=== PATIENT | male | born 1970 | race Caucasian/White ===

== ENCOUNTER 2018-01-04 06:59 | Emergency (ER) | payer SELFPAY ==
[2018-01-04 07:03] VITALS: BP 166/109; PULSE 108; RESP 18; TEMP 36.7; O2SAT 100; BMI 20.2
--- NOTE | 2018-01-04 07:13 | EKG12_ITS ---
Test Reason : REPEAT-CP Blood Pressure : / mmHG Vent. Rate : 083 BPM Atrial Rate : 083 BPM P-R Int : 148 ms QRS Dur : 096 ms QT Int : 380 ms P-R-T Axes : 073 080 054 degrees QTc Int : 446 ms Normal sinus rhythm with sinus arrhythmia Normal ECG Confirmed by RACHEL DELUCA, ESTRELLA ([id number]), magazine editor SUDHIR RODRIGUEZ ([id number]) on 01/06/2018 11:21:36 AM Referred By: CORRINA Confirmed By:ESTRELLA RAMOS MD
--- NOTE | 2018-01-04 07:13 | RAD_ITS ---
STUDY: X-RAY CHEST REASON FOR EXAM: Male, 47 years old. Chest pain. TECHNIQUE: Single AP portable view of the chest. Patient is mildly rotated. # of Images: 1 COMPARISON: None. FINDINGS: There is hyperinflation of the lungs. There is no demonstrated pleural abnormality. Normal size heart. Normal mediastinum and mesha. Normal visualized pulmonary arteries. Normal visualized aortic arch and descending thoracic aorta. Normal visualized thoracic spine. Normal visualized ribs, clavicles, and shoulders. There is no demonstrated abnormality of the visualized soft tissue structures of the upper abdomen. RAD/Chest 1 View (Portable) IMPRESSION: No acute or active cardiopulmonary abnormality noted. Electronically Signed: Montrell Prado MD at 7:37 EDT Tel , Service support ,
--- NOTE | 2018-01-04 07:14 | ED.VISSUMM ---
- ER Visit Summary Date of Service: 01/04/18 Chief Complaint: Chest pain History of Present Illness: The patient is a 47 M with no primary care physician. He reports his chest pain began 30 minutes ago while walking to work. Reports that this was light activity. He describes as a pressure and squeezing left upper chest with radiation to his shoulder. Is 5 out of 10 at worst and 3-10 currently. Is worsened by exertion or breathing. Is relieved by rest. He reports this made him short of breath and lightheaded. Denies any associated nausea, vomiting, or diaphoresis. States that this is similar to when he had an [place] in the past. However, he has never had a heart catheterization. No personal or family history of DVT. No recent travel. No ankle swelling or calf pain. Physical Examination: Vitals: Stable. Afebrile. General: Well-nourished and well-developed. Head: Normocephalic atraumatic. Neck: Supple, no lymphadenopathy. No JVD. Nontender. Cardiovascular: Regular rate and rhythm. No murmurs. Respiratory: No respiratory distress. Clear to auscultation bilaterally. Mild tenderness palpation over the left upper chest that does reproduce his pain. Abdominal: Soft, nontender, nondistended, normal bowel sounds. No guarding, rebound, or peritoneal signs. Back: Nontender. Extremities: Nontender, no edema. Skin: Normal color, no rash. Neurologic: Alert and oriented ?3. Cranial nerves II through XII are intact. Normal strength and sensation. Psych: Normal affect. Test Results: EKG is sinus tach at [address] changes. He does have scooped ST segments with [place] and ST depression inferiorly. There is no old EKG for comparison. CBC is more for lymphocytes 42. Chem-7 is more for chloride 109. Troponin is negative. Chest x-ray shows no acute disease. I did talk to him repeat troponin is negative. Repeat EKG is unchanged. Emergency Department Course and Treatment: Patient had an IV placed. He was given aspirin p.o. and Toradol IV. Treatment Plan: Patient has a heart score of 3 and a ESPINOZA score of 1. I feel he is a suitable candidate for further outpatient evaluation. He will be discharged instructions to follow-up with Dr. Morataya as soon as possible. Return to the emergency department for any worsening symptoms. Disposition: To home in improved and stable condition. Impression: 1. Atypical chest pain. 2. ESPINOZA score of 1. This note was generated with [employer] dictation software. It may contain incorrect words, spelling, and punctuation that were not noted in review of the chart prior to signing ED Disposition - Plan for ED Patient: Chief Complaint: Chest Pain Instructions: ED Chest Pain Atypical Unkn Cause Referrals: Hakan Morataya DO [STAFF PHYSICIAN] - As soon as possible
--- NOTE | 2018-01-04 07:18 | ED.DCSUM_ITS ---
- ER Visit Summary Date of Service: 01/04/18 Chief Complaint: Chest pain History of Present Illness: The patient is a 47 M with no primary care physician. He reports his chest pain began 30 minutes ago while walking to work. Reports that this was light activity. He describes as a pressure and squeezing left upper chest with radiation to his shoulder. Is 5 out of 10 at worst and 3-10 currently. Is worsened by exertion or breathing. Is relieved by rest. He reports this made him short of breath and lightheaded. Denies any associated nausea, vomiting, or diaphoresis. States that this is similar to when he had an [place] in the past. However, he has never had a heart catheterization. No personal or family history of DVT. No recent travel. No ankle swelling or calf pain. Physical Examination: Vitals: Stable. Afebrile. General: Well-nourished and well-developed. Head: Normocephalic atraumatic. Neck: Supple, no lymphadenopathy. No JVD. Nontender. Cardiovascular: Regular rate and rhythm. No murmurs. Respiratory: No respiratory distress. Clear to auscultation bilaterally. Mild tenderness palpation over the left upper chest that does reproduce his pain. Abdominal: Soft, nontender, nondistended, normal bowel sounds. No guarding, rebound, or peritoneal signs. Back: Nontender. Extremities: Nontender, no edema. Skin: Normal color, no rash. Neurologic: Alert and oriented ?3. Cranial nerves II through XII are intact. Normal strength and sensation. Psych: Normal affect. Test Results: EKG is sinus tach at [address] changes. He does have scooped ST segments with [place] and ST depression inferiorly. There is no old EKG for comparison. CBC is more for lymphocytes 42. Chem-7 is more for chloride 109. Troponin is negative. Chest x-ray shows no acute disease. I did talk to him repeat troponin is negative. Repeat EKG is unchanged. Emergency Department Course and Treatment: Patient had an IV placed. He was given aspirin p.o. and Toradol IV. Treatment Plan: Patient has a heart score of 3 and a ESPINOZA score of 1. I feel he is a suitable candidate for further outpatient evaluation. He will be discharged instructions to follow-up with Dr. Morataya as soon as possible. Return to the emergency department for any worsening symptoms. Disposition: To home in improved and stable condition. Impression: 1. Atypical chest pain. 2. ESPINOZA score of 1. This note was generated with [employer] dictation software. It may contain incorrect words, spelling, and punctuation that were not noted in review of the chart prior to signing ED Disposition - Plan for ED Patient: Chief Complaint: Chest Pain Instructions: ED Chest Pain Atypical Unkn Cause Referrals: Hakan Morataya DO [STAFF PHYSICIAN] - As soon as possible
[2018-01-04] MEDS: Ketorolac 30 MG/ML Syringe IV (07:30)
[2018-01-04] MEDS: Aspirin 81 MG TAB.CHEW 324 MG PO (07:30)
[2018-01-04] MEDS: 0.9% Normal Saline 1,000 ML 1000 ML IV (07:30)
[2018-01-04 07:31] VITALS: O2SAT 100
[2018-01-04 07:40] LABS: Absolute Lymphocyte Count 2.59 X10^3/ul (0.83-4.51); Absolute Neutrophil Count 3.1 X10^3/uL (2.0-7.7); Basophil# 0.03 X10^3/uL; Basophil% 0.5 % (0-1); Eosinophil# 0.09 X10^3/uL; Eosinophils% 1.5 % (0-5); Hematocrit 43.2 % (40-54); Hemoglobin 14.3 g/dl (13.0-16.5); Lymphocyte # 2.59 X10^3/ul (4.0); Lymphocyte % 42.1 % (19-41); Mean Corp Hgb Conc 33.1 g/gl (32-36); Mean Corpuscular Hgb 29.1 pg (27.0-32.0); Mean Corpuscular Volume 87.8 fL (80-94); Mean Platelet Vol. 10.3 fl (6.2-12.0); Monocyte# 0.37 X10^3/uL; Neutrophil # 3.07 X10^3/uL (2.7-7.7); Neutrophil % 49.9 % (47-70); Platelet Count 235 K/mm3 (150-450); RBC Distribution Width CV 14.4 % (11.6-14.6); Red Blood Count 4.92 M/mm3 (4.6-6.2); White Blood Count 6.2 K/mm3 (4.4-11.0)
[2018-01-04 07:45] LABS: POSITIVE COUNT NO; POSITIVE DIFFERENTIAL NO; POSITIVE MORPHOLOGY NO
[2018-01-04 07:53] LABS: Anion Gap 5 (5-15); BUN 16 mg/dL (7-18); BUN/Creat Ratio 14.5 RATIO (10-20); Calcium,Total 8.7 mg/dL (8.5-10.1); Chloride 109 mmol/L (98-107); EST Glomerular Filtration Rate 77 mL/min (>60); Est Glom Filt Rate - Afr Amer 93 mL/min (>60); Estimated Creatinine Clearance 80.59 ml/min; Glucose 98 mg/dL (74-106); Sodium Level 139 mmol/L (136-145)
--- NOTE | 2018-01-04 08:01 | EKG12_ITS ---
Test Reason : CP Blood Pressure : / mmHG Vent. Rate : 107 BPM Atrial Rate : 107 BPM P-R Int : 132 ms QRS Dur : 086 ms QT Int : 332 ms P-R-T Axes : 078 084 048 degrees QTc Int : 443 ms Sinus tachycardia Nonspecific ST abnormality Abnormal ECG Confirmed by RACHEL DELUCA, ESTRELLA ([id number]), editorial manager SUDHIR RODRIGUEZ ([id number]) on 01/06/2018 11:22:24 AM Referred By: CORRINA Confirmed By:ESTRELLA RAMOS MD
[2018-01-04 08:08] VITALS: BP 153/96; PULSE 66; RESP 14; O2SAT 100
[2018-01-04 09:38] VITALS: BP 136/87; PULSE 89; RESP 20; O2SAT 99
[2018-01-04 10:11] VITALS: BP 133/99; PULSE 86; RESP 15; O2SAT 98
[2018-01-04 11:21] VITALS: BP 161/107; PULSE 86; RESP 15; O2SAT 98
== END 2018-01-04 11:23 | disposition home or self-care (01) ==
PROVIDERS: Emergency Provider Emergency Medicine
DX: R07.89 Other chest pain (principal); I25.2 Old myocardial infarction; Z72.0 Tobacco use
CPT/HCPCS: 71045; 80048; 84484; 85025; 93005; 96361; 96374; 99285; J7030; A4216